=== PATIENT | female | born 1950 | race Caucasian/White ===

== ENCOUNTER → 2017-01-20 | Outpatient (CLI) | payer BC ==
[~2017-01-20] VITALS: Ht 162.6 cm; Wt 68.0 kg
[2017-01-20 15:14] VITALS: BP 160/83; PULSE 68; Ht 162.6 cm; Wt 68.0 kg
== END | disposition home or self-care (01) ==
LOC: C.NEUR 14:00
PROVIDERS: ATTEND Internal Medicine Pulmonary Disease
DX: G47.30 Sleep apnea, unspecified (principal); G47.00 Insomnia, unspecified; G40.309 Generalized idiopathic epilepsy and epileptic syndromes, not intractable, without status epilepticus

== ENCOUNTER → 2017-02-15 | Outpatient (CLI) | payer BC ==
--- NOTE | 2017-02-16 06:29 | PAP/PSG TECHNICIAN REPORT ---
[facility] Band Tumbler Polysomnogram Report Study name: None Report date: 02/16/2017 Study date: 02/15/2017 Referring Physician: Shaka Cantu M.D. Name: CHARMAINE ALVARADO Interpreting Physician: Shaka Cantu M.D. Date of : 1950 Band Tumbler: Kandi Perales RUST. Sex: Female Age: 66 StudyType: PSG PAP Weight: 236 lbs Height: 66 years, Height 5' 4" Neck Circum: 15 inches BMI: 40.5 Medications: Keppra 500 mg, Metoprolol 50 mg, Lisinopril 5 mg, Vitamin D 1000 iu, Calcium 500 mg, Voltaren Cream, One a day vitamin Patient History 66 yr. old female here for a new titration sleep study with seizure montage. Patient had a HST that showed an RDI of 7. ESS 08/01. Parameters Monitored NPSG: E1-M2, E2-M1, Fp1-M2, Fp2-M1, F3-M2, F4-M2, F4-M1, C3-M2, C4-M2, C4-M1, O1-M2, O2-M2, O2-M1, T3-M2, T4-M1, P3-M2, P4-M1, CHIN1, CHIN2, HR, EKG, Legs, PFLOW, SNOR, FLOW, CFLOW, Tidal Volume, THOR, ABDO, SpO2, PLTH, CPRESS, ETCO2 Wave, ETCO2, pH Sleep Architecture Sleep Stages Time at Lights Off 11:00:46 PM STAGES Time (min.) TST (%) Time at Lights On 5:06:16 AM Wake 161.0 -- Total Recording Time (TRT) 366.00 min. N1 46.5 23 Total Sleep Period (TSP) 293.5 min. N2 152.5 75 Total Sleep Time (TST) 204.5min. N3 2.0 1 Awake Time 161.5 min. REM 3.5 2 Wake after Sleep Onset 128.5 min. Sleep Efficiency (SE) 56 % Sleep Onset Latency (BAR) 32.5 min. Number of Stage 1 Shifts None Awakenings 18 Stage Changes 62 Number of REM periods 2 REM 3.5 2 REM Latency 125.5 min. NREM 201.0 98 Body Position Analysis Supine Right Left Side Prone Vertical Total Sleep Time (min.) 68.1 192.5 2.0 194.50 0.0 1.6 Total Sleep Time (%) 5% 94% 1% 95 0% N/A% Total Sleep Time REM (min.) 0.0 3.5 0.0 None 0.0 0.0 Total Sleep Time NREM (min.) 10.0 189.0 2.0 None 0.0 0.0 Intermittent Wake (min.) 58.1 92.7 8.6 None 0.0 1.6 Total Sleep Period (%) 5% None None None None None Arousals Myoclonus (PLM) * Events Count Index Events Count Index Spontaneous 9 3 Events Awake (PLMW) 148 55.2 Respiratory 0 0.0 Events Asleep w/ Arousal (PLMA) 10 2.9 PLM 9 3 Events Asleep w/o Arousal (PLMS) 27 7.9 Snoring 2 1 Total Asleep 37 10.9 Total 20 6 Total 185 30 Respiratory Analysis * CA OA MA CH H RERA Total Count 0 0 0 0 5 0 5 Index 0.0 0.0 0.0 0 1.5 0 1.5 Mean Duration 0.0 0.0 0.0 0.00 22.4 0.0 22.4 Longest Duration 0.0 0.0 0.0 0.00 0.0 0.0 29.8 Respiratory Event Summary Total Supine ~Supine Right Left Prone REM NREM Apneas Count 0 0 0 0 0 N/A 0 0 Index 0.0 0 0 0.0 0.0 N/A 0 0 Hypopneas (4% Desat) Count 5 0 5 5 0 N/A 0 5 Index 1.5 0.0 2 1.6 0.0 N/A 0.0 1.5 Apneas & All Hypopneas Count 5 0 5 5 0 N/A 0 5 Index 1.5 0 2 2 0 N/A 0.0 1.5 Respiratory Events ([employer]+All Hyp+RERA) Count 5 0 5 5 0 N/A 0 5 Index 1.5 0 2 1.6 0.0 N/A 0.0 1.5 Respiratory Related Arousal Count 0 0 0 0 0 N/A 0 0 Index 0.0 0 0 0 0 N/A 0 0 Snoring Analysis Supine Right Left Prone REM NREM Total Snore duration 2.7 min Snores count 3 122 0 N/A 1 124 125 Snore mean duration 1.3 Sec Snores index 18 38 0 N/A 17.1 37.0 36.7 TST with snoring (%) 1.3% Desaturation Event Summary: Minimum %SpO2 Event Count Mean/Min/Max Duration(sec.) Desaturation Index % Time In Bed > 90 19 33.5 / 9.0 / 58.8 4.1 79.2 86 - 90 0 N/A 0.0 20.8 81 - 85 0 N/A 0.0 0.1 76 - 80 0 N/A 0.0 0.0 71 - 75 0 N/A 0.0 0.0 66 - 70 0 N/A 0.0 0.0 61 - 65 0 N/A 0.0 0.0 56 - 60 0 N/A 0.0 0.0 51 - 55 0 N/A 0.0 0.0 < 50 0 N/A 0.0 0.0 Total REM NREM Awake <50% 0.0 min. 0.0 min. 0.0 min. 0.0 min. 51 - 60% 0.0 min. 0.0 min. 0.0 min. 0.0 min. 61 - 70% 0.0 min. 0.0 min. 0.0 min. 0.0 min. 71 - 80% 0.0 min. 0.0 min. 0.0 min. 0.0 min. 81 - 90% 73.6 min. 1.9 min. 71.0 min. 0.7 min. 91 - 100% 279.4 min. 1.6 min. 130.0 min. 147.8 min. Average 92 90 91 93 Minimum SpO2 82 88 88 82 Desaturation Event Index 3.1 0.0 3.0 3.7 # Desat. Events below 89% 1 N/A 1 N/A Time(%) with Saturation below 89% 0.6 0.2 0.3 0.1 Time(min.) with Saturation below 89% 2.1 0.9 1.1 0.2 Time (mins) REM (mins) NREM (mins) % of TST SpO2 Below 90% 5 N/A N5 6.6 SpO2 Below 88% 1 0 0 0 Heart Rate Analysis Min (bpm) Max (bpm) Average (bpm) Awake 60 95 69 NREM 60 85 72 REM 72 84 77 Overall 60 85 72 Supplemental O2 Values Minimum O2 level: None Value Start Time End Time Band Tumbler Comments Mrs. Alvarado slept in the right ,left, and supine positions. No cardiac arrhythmia or PLMs noted. No bruxism noted. CPAP was initiated at +4 CMH2O and up-titrated to a level of + 5 CMH2O no Cflex, which nearly eliminated all respiratory events and snoring. A medium ResMed airtouch F20 , was used during titration. Mrs. Alvarado did not wake to use the restroom during the night. Mrs. Alvarado stated, that was a normal night. The final report will be interpreted and signed by a sleep physician. The completed physician report will then be placed in the patient medical record. Therapy Event: Therapy (cm H20) 0 4 5 Total Time at Pressure (min.) 0.4 293.6 71.4 TST at Pressure (min.) 0.0 173.1 31.4 # Periods 1 1 1 Sleep Onset (min.) N/A 32.1 0.0 REM Onset (min.) N/A 157.6 N/A Sleep Efficiency % 0 58 44 Wakefulness (%) 100.0 41.1 56.0 Wakefulness (min.) 0.4 120.6 40.0 NREM 1 (%) 0.0 15.0 3.5 NREM 1 (min.) 0.0 44.0 2.5 NREM 2 (%) 0.0 42.1 40.5 NREM 2 (min.) 0.0 123.6 28.9 NREM 3 (%) 0.0 0.7 0.0 NREM 3 (min.) 0.0 2.0 0.0 REM (%) 0.0 1.2 0.0 REM (min.) 0.0 3.5 0.0 # Arousals N/A 15 5 Arousal Index N/A 5.2 9.5 # Snore N/A 123 2 Snore Index N/A 42.6 3.8 AHI N/A 1.4 1.9 AHI Supine N/A 0.0 N/A AHI Non-Supine N/A 1.5 1.9 NREM AHI N/A 1.4 1.9 REM AHI N/A 0.0 N/A RDI N/A 1.4 1.9 # Obstructive N/A 0 0 # Central Ap N/A 0 0 # Mixed N/A 0 0 # Hypopneas N/A 4 1 RERAS N/A 0 0 Total Respiratory Events N/A 4 1 Time Below SpO2 89.00% (min.) 0.0 1.8 0.1 Mean NREM SpO2 (%) N/A 91 91 Mean REM SpO2 (%) N/A 90 N/A Mean Sleep SpO2 (%) N/A 91 91 Min NREM SpO2 (%) N/A 88 88 Min REM SpO2 (%) N/A 88 N/A Position Supine (min.) 0.0 10.0 0.0 Position Non-supine (min.) 0.0 163.1 31.4 LM Index Sleep N/A 11.8 5.7 LM Index NREM N/A 11.0 5.7 LM Index REM N/A 51.4 N/A Mean Heart Rate (bpm) N/A 73 68 Min Heart Rate (bpm) N/A 62 60
--- NOTE | 2017-02-16 15:26 | POLYSOMNOGRAPH REPORT ---
CLINICAL DATA: A 66-year-old female with BMI of 40.5 referred by myself and Dr. Nair for evaluation and treatment of sleep apnea and possible nocturnal seizures. A CPAP titration study was done using a seizure montage. SLEEP ARCHITECTURE: Total sleep period was 293.5 minutes. Total sleep time was 204.5 divided between 201 minutes of non-REM sleep and 3.5 minutes of REM sleep. Sleep onset latency was 32.5 minutes. REM latency was 125.5 minutes. Sleep efficiency was reduced at 56%. Wake after sleep onset was elevated at 128.5 minutes. Sleep consisted of stage N1 22%, stage N2 75%, stage N3 1%, and REM 2%. AROUSAL DATA: Twenty arousals recorded for an index of 6 per hour. PLM DATA: Thirty-seven limb movements during sleep were noted for an index of 10.9 per hour with arousal index of 2.9 per hour. RESPIRATORY DATA: The AHI was 1.5. There were 5 hypopneic episodes with a mean duration of 22.4 seconds. OXIMETRY DATA: No hypoxemia was seen. Oxygen didi was 88%. Mean saturation was 92%. EKG: Heart rates ranged from 60-85 beats per minute. No arrhythmias were noted. QUARRY EXTRACTION WORKER'S COMMENTS: The patient slept in the right, left, and supine positions. No seizure activity was seen. She used a ResMed medium AirTouch F20 mask. She was titrated up to 5 cm of water pressure. At that level, she slept for 31.4 minutes with an AHI of 1.9. IMPRESSION: Mild sleep apnea/hypopnea corrected with CPAP 5 cm water pressure, medium ResMed AirTouch F20 mask. There was no seizure activity seen. RECOMMENDATIONS: The patient could be started on the above noted treatment regimen and seen back in followup within 90 days to document efficacy and compliance. [facility]
== END | disposition home or self-care (01) ==
LOC: C.NEUR 21:00
PROVIDERS: ATTEND Internal Medicine Pulmonary Disease
DX: G47.30 Sleep apnea, unspecified (principal)

== ENCOUNTER → 2017-03-07 | Outpatient (CLI) | payer BC ==
[~2017-03-07] VITALS: Ht 161.3 cm; Wt 107.5 kg
[2017-03-07 15:19] VITALS: BP 165/100; PULSE 80; Ht 161.3 cm; Wt 107.5 kg
== END | disposition home or self-care (01) ==
LOC: C.NEUR 15:07
PROVIDERS: ATTEND Physician Assistant Medical
DX: G47.30 Sleep apnea, unspecified (principal); G47.00 Insomnia, unspecified; I10 Essential (primary) hypertension

== ENCOUNTER → 2017-07-18 | Outpatient (CLI) | payer OTHER, MEDICARE ==
[~2017-07-18] VITALS: Ht 161.3 cm; Wt 108.8 kg
[2017-07-18 13:04] VITALS: BP 153/84; PULSE 80; Ht 161.3 cm; Wt 108.8 kg
== END | disposition home or self-care (01) ==
LOC: C.NEUR 12:30
PROVIDERS: ATTEND Internal Medicine Pulmonary Disease
DX: G47.30 Sleep apnea, unspecified (principal); G47.00 Insomnia, unspecified; G40.309 Generalized idiopathic epilepsy and epileptic syndromes, not intractable, without status epilepticus